=== PATIENT | male | born 1990 | race Caucasian/White ===

== ENCOUNTER 2016-11-11 23:42 | Emergency (ER) | payer OTHER ==
--- NOTE | 2016-11-12 01:12 | ER Document Report ---
ED General - General Chief Complaint: Dizziness Stated Complaint: BODY ACHES Time Seen by Provider: 11/12/16 00:40 Notes: Patient is a 26-year-old male without past medical history who presents with a multitude of complaints including general aches, lightheadedness, nausea, fatigue and diarrhea for the past 2 weeks. States he was seen in a different emergency department a week ago and had a chest x-ray done at that time which was normal. States his symptoms started after he began having diarrhea 2 weeks ago. His significant other also the same symptoms but hers have since resolved. Denies history of similar symptoms in the past. Nothing improves or worsens his symptoms. He has not seen a primary care doctor regarding today's concerns. He denies any focal abdominal pain, chest pain, shortness of breath, headache or neck pain. No fever. TRAVEL OUTSIDE OF THE [place] IN LAST 30 DAYS: No - Related Data Allergies/Adverse Reactions: No Known Allergies Allergy (Unverified 11/12/16 00:08) Past Medical History - General Information source: Patient - Social History Smoking Status: Never Smoker Frequency of alcohol use: None Drug Abuse: None Lives with: Spouse/Significant other Family History: Reviewed & Not Pertinent Patient has suicidal ideation: No Patient has homicidal ideation: No Renal/ Medical History: Denies: Hx Peritoneal Dialysis Review of Systems - Review of Systems Notes: Constitutional: Negative for fever. HENT: Negative for sore throat. Eyes: Negative for visual changes. Cardiovascular: Negative for chest pain. Respiratory: Negative for shortness of breath. Gastrointestinal: Negative for abdominal pain, vomiting or diarrhea. Genitourinary: Negative for dysuria. Musculoskeletal: Negative for back pain. Skin: Negative for rash. Neurological: Negative for headaches, weakness or numbness. 10 point ROS negative except as marked above and in HPI. Physical Exam - Vital signs Vitals: Temp Pulse Resp BP Pulse Ox 97.7 F 107 H 16 133/83 H 95 11/12/16 00:04 11/12/16 00:04 11/12/16 00:04 11/12/16 00:04 11/12/16 00:04 Interpretation: Tachycardic Notes: PHYSICAL EXAMINATION: GENERAL: Well-appearing, well-nourished and in no acute distress. HEAD: Atraumatic, normocephalic. EYES: Pupils equal round and reactive to light, extraocular movements intact, sclera anicteric, conjunctiva are normal. ENT: nares patent, oropharynx clear without exudates. Moist mucous membranes. NECK: Normal range of motion, supple without lymphadenopathy LUNGS: Breath sounds clear to auscultation bilaterally and equal. No wheezes rales or rhonchi. HEART: Regular rate and rhythm without murmurs ABDOMEN: Soft, nontender, normoactive bowel sounds. No guarding, no rebound. No masses appreciated. EXTREMITIES: Normal range of motion, no pitting or edema. No cyanosis. NEUROLOGICAL: Face symmetric. Tongue protrudes midline. Extraocular motions intact. Pupils are 2 mm and equally reactive. Normal speech, normal gait. 5 out of 5 strength in both the distal and proximal upper and lower extremities bilaterally. Sensation is grossly intact throughout. Finger to nose testing normal. Pronator drift normal. PSYCH: Normal mood, normal affect. SKIN: Warm, Dry, normal turgor, no rashes or lesions noted. Course - Re-evaluation Re-evalutation: 11/12/16 01:12 Patient presents with multiple vague complaints that did not appear to be concerning for any acute life-threatening pathology. Vitals are within normal limits at triage and at time of discharge. Physical examination is unremarkable. Patient has tolerated oral intake without difficulty. Patient was not noted to be in distress at any point during their ER visit. At this time, based on the reassuring evaluation, I do not suspect an acute IL, pulmonary embolus, aortic dissection, acute intra-abdominal pathology, stroke, or sepsis. Will discharge with return precautions and follow-up recommendations. Verbal discharge instructions given a the bedside and opportunity for questions given. Medication warnings reviewed. Patient is in agreement with this plan and has verbalized understanding of return precautions and the need for primary care follow-up in the next 24-72 hours. - Vital Signs Vital signs: Temp Pulse Resp BP Pulse Ox 97.7 F 107 H 16 133/83 H 95 11/12/16 00:04 11/12/16 00:04 11/12/16 00:04 11/12/16 00:04 11/12/16 00:04 - Laboratory Result Diagrams: 11/12/16 01:25 11/12/16 01:25 Laboratory results interpreted by me: 11/12/16 11/12/16 01:25 01:25 Monocytes % 16.1 H Calcium 10.4 H Discharge - Discharge Clinical Impression: Body aches Fatigue Qualifiers: Fatigue type: chronic, unspecified Qualified Code(s): R53.82 - Chronic fatigue , unspecified Condition: Good Disposition: HOME, SELF-CARE Additional Instructions: Your labs are normal today. Your symptoms do not of clear source at this time do not appear to be any life-threatening cause. Please follow-up with a primary care physician if your symptoms do not resolve or fail to improve in the next several weeks.Please return to the emergency room immediately if you experience any concerning symptoms including high fevers, severe headache, chest pain, difficulty breathing, abdominal pain, slurred speech, numbness or weakness in your arms or legs, or any other symptom that concerns you. Forms: Return to Work
[2016-11-12 01:44] LABS: ABSOLUTE EOSINOPHILS # (AUTO) 0.1 10^3/uL (0.0-0.6); ABSOLUTE LYMPHOCYTES (AUTO) 1.9 10^3/uL (0.5-4.7); ABSOLUTE MONOCYTES (AUTO) 1.2 10^3/uL (0.1-1.4); ABSOLUTE NEUT (AUTO) 4.2 10^3/uL (1.7-8.2); BASOPHILS % (AUTO) 0.3 % (0-2); EOSINOPHILS % (AUTO) 1.6 % (0-6); HEMATOCRIT 44.3 % (37.9-51.0); HEMOGLOBIN 15.4 g/dL (13.5-17.0); HGB HCT DIFFERENCE 1.9; LYMPHOCYTES % (AUTO) 25.2 % (13-45); MEAN CORPUSCULAR HEMOGLOBIN 30.8 pg (27.0-33.4); MEAN CORPUSCULAR HGB CONC 34.8 g/dL (32.0-36.0); MEAN CORPUSCULAR VOLUME 89 fl (80-97); MONOCYTES % (AUTO) 16.1 % (3-13); RED BLOOD COUNT 5.01 10^6/uL (4.35-5.55); RED CELL DISTRIBUTION WIDTH 12.5 % (11.5-14.0); SEGMENTED NEUTROPHILS % (AUTO) 56.8 % (42-78); WHITE BLOOD COUNT 7.5 10^3/uL (4.0-10.5)
[2016-11-12 02:03] LABS: ALANINE AMINOTRANSFERASE 71 U/L (21-72); ALBUMIN 4.4 g/dL (3.5-5.0); ALKALINE PHOSPHATASE 46 U/L (38-126); ANION GAP 10 (5-19); ASPARTATE AMINO TRANSFERASE 49 U/L (17-59); BILIRUBIN,DIRECT 0.4 mg/dL (0.0-0.4); BILIRUBIN,TOTAL 1.3 mg/dL (0.2-1.3); BLOOD UREA NITROGEN 16 mg/dL (7-20); CALCIUM 10.4 mg/dL (8.4-10.2); CARBON DIOXIDE 28 mmol/L (22-30); CHLORIDE 104 mmol/L (98-107); CREATININE RESULT 0.82 mg/dL (0.52-1.25); GLUCOSE 105 mg/dL (75-110); POTASSIUM 4.7 mmol/L (3.6-5.0); SODIUM 142.1 mmol/L (137-145)
[2016-11-12 02:23] VITALS: BP 126/82
== END 2016-11-12 02:20 | disposition home or self-care (01) ==
LOC: ER 23:42
DX: R53.82 Chronic fatigue, unspecified (principal); R52 Pain, unspecified; R42 Dizziness and giddiness; R11.10 Vomiting, unspecified; R19.7 Diarrhea, unspecified; R00.0 Tachycardia, unspecified
CPT/HCPCS: 36415; 80053; 85025; 99283